=== PATIENT | female | born 2000 | race Caucasian/White ===

== ENCOUNTER 2022-11-08 21:24 | Emergency (ER) | payer BC | END 2022-11-08 21:44 | disposition home or self-care (01) | LOC: VM.ED 21:24 | DX: S06.0X0A Concussion without loss of consciousness, initial encounter (principal); W10.9XXA Fall (on) (from) unspecified stairs and steps, initial encounter; Y93.01 Activity, walking, marching and hiking | CPT/HCPCS: 99283 ==